=== PATIENT | female | born 1950 | race Caucasian/White ===

== ENCOUNTER 2016-06-04 10:36 | Emergency (ER) | payer OTHER ==
[2016-06-04 10:55] VITALS: BP 146/76; PULSE 84; RESP 18; TEMP 97.9; O2SAT 99
--- NOTE | 2016-06-04 11:27 | UCPHY ---
H & P Patient Type: New Chief Complaint Nursing Narrative: fell today, landed on l shoulder, c/o l shoulder pain and inability to move l arm Time Seen by Provider: 06/04/16 11:15 HPI/ROS: CHIEF COMPLAINT: Left shoulder pain HISTORY OF PRESENT ILLNESS: The patient is a 65-year-old female who comes to the Urgent Care complaining of left-sided shoulder pain. She states that this morning she tripped over the carpet and fell onto her left shoulder. She had immediate pain. She has mild neck pain and elbow pain as well but is not concerned about it. She thinks that the main issue was her shoulder. Normal pulses distally. Normal sensation. REVIEW OF SYSTEMS: Constitutional: denies: chills, fever, recent illness, recent injury EENTM: denies: blurred vision, double vision, nose congestion Respiratory: denies: cough, shortness of breath Cardiac: denies: chest pain, irregular heart rate, lightheadedness, palpitations Gastrointestinal/Abdominal: denies: abdominal pain, diarrhea, nausea, vomiting, blood streaked stools Genitourinary: denies: dysuria, frequency, hematuria, pain Musculoskeletal: See HPI Skin: denies: lesions, rash, jaundice, bruising Neurological: denies: headache, numbness, paresthesia, tingling, dizziness, weakness Hematologic/Lymphatic: denies: blood clots, easy bleeding, easy bruising Immunologic/allergic: denies: HIV/AIDS, transplant EXAM: GENERAL: Well-appearing, well-nourished and in no acute distress. HEAD: Atraumatic, normocephalic. EYES: Pupils equal round and reactive to light, extraocular movements intact, sclera anicteric, conjunctiva are normal. ENT: TMs normal, nares patent, oropharynx clear without exudates. Moist mucous membranes. NECK: Normal range of motion, supple without lymphadenopathy or JVD. LUNGS: Breath sounds clear to auscultation bilaterally and equal. No wheezes rales or rhonchi. HEART: Regular rate and rhythm without murmurs, rubs or gallops. ABDOMEN: Soft, nontender, normoactive bowel sounds. No guarding, no rebound. No masses appreciated. BACK: No CVA tenderness, no spinal tenderness, step-offs or deformities EXTREMITIES: Left shoulder pain, tenderness to the proximal humerus, tenderness to the AC joint or neck. No tenderness to the elbow. Normal pronation and supination and flexion of the elbow. NEUROLOGICAL: Cranial nerves II through XII grossly intact. Normal speech, normal gait. 5/5 strength, normal movement in all extremities, normal sensation PSYCH: Normal mood, normal affect. SKIN: Warm, dry, normal turgor, no visible rashes or lesions. Source: Patient Exam Limitations: No limitations - Medical/Surgical History Hx Asthma: No Hx Chronic Respiratory Disease: No Hx Diabetes: No Hx Cardiac Disease: No Hx Renal Disease: No Hx Cirrhosis: No Other PMH: depression - Family History Significant Family History: Hypertension - Social History Smoking Status: Former smoker Alcohol Use: Sober Drug Use: None Constitutional: Initial Vital Signs Temperature (C) 36.6 C 06/04/16 10:52 Heart Rate 84 06/04/16 10:52 Respiratory Rate 18 06/04/16 10:52 Blood Pressure 146/76 H 06/04/16 10:52 O2 Sat (%) 99 06/04/16 10:52 O2 Delivery Mode Room Air Allergies/Adverse Reactions: Sulfa (Sulfonamide Antibiotics) Allergy (Verified 06/04/16 10:51) Home Medications: Medication Instructions Recorded Ibuprofen 800 mg PO TID PRN #30 tablet 06/04/16 Prozac 20 MG (*) 06/04/16 oxyCODONE/APAP 5/325 [Percocet 1 - 2 tab PO Q4-6PRN PRN #14 tab 06/04/16 5/325 (RX)] Medical Decision Making Procedures: Procedure: Splint placement. A arm sling was applied. After application of the splint I returned and re- examined the patient. The splint was adequately immobilizing the joint and distal to the splint the patient's circulation and sensation was intact. ED Course/Re-evaluation: Patient has a humeral neck fracture. I will place her in a sling and have her follow up with Orthopedics. She declines other imaging workup at this time. She does request Percocet but only once to have a small prescription she is concerned about becoming addicted. She takes ibuprofen chronically for arthritis. She also is requesting referral to primary care physician for treatment of her depression and refill of her Prozac. She recently moved to [facility]. Differential Diagnosis: Partial list of the Differential diagnosis considered include but were not limited to; humeral neck fracture, AC separation, contusion, neck injury, rotator cuff injury, elbow injury and although unlikely based on the history and physical exam, I also considered non accidental trauma, intracranial hemorrhage. I discussed these differential diagnoses and the plan with the patient as well as the usual and expected course. The patient understands that the diagnosis is provisional and that in medicine we are not always correct and that further workup is often warranted. Usual and customary warnings were given. All of the patient's questions were answered. The patient was instructed to return to the emergency department should the symptoms at all worsen or return, otherwise to followup with the physician as we discussed. - Data Points Medications Given: Discontinued Medications Oxycodone/Acetaminophen (Percocet 5/325) 2 tab PO EDNOW ONE Stop: 06/04/16 11:31 Last Admin: 06/04/16 11:45 Dose: 2 tab Departure - Departure Disposition: Home, Routine, Self-Care Clinical Impression: Fracture, humerus closed Qualifiers: Encounter type: initial encounter Humerus Location: proximal Fracture morphology: other fracture Fracture alignment: nondisplaced Laterality: left Qualified Code(s): S42.295A - Other nondisplaced fracture of upper end of left humerus, initial encounter for closed fracture Acromioclavicular joint separation Qualifiers: Encounter type: initial encounter Laterality: left Qualified Code(s): S43.102A - Unspecified dislocation of left acromioclavicular joint, initial encounter Condition: Fair Instructions: Proximal Humerus Fracture (ED) Referrals: Chris Oliver MD [Medical Doctor] - As per Instructions Chetna Rutledge MD [Medical Doctor] - As per Instructions Prescriptions: Ibuprofen 800 mg PO TID PRN #30 tablet PRN Reason: Pain, Moderate oxyCODONE/APAP 5/325 [Percocet 5/325 (RX)] 1 - 2 tab PO Q4-6PRN PRN #14 tab PRN Reason: Pain - PQRS PQRS Measurement: 134: Depression screening and followup, PRIME MD-PHQ2 (12 years and older) Over the last 2 weeks, how often have you been bothered by any of the following problems? 1. Feeling down, depressed, or hopeless? 2. Little interest or pleasure in doing things? Patient answered no to both 1 and 2 130: Documentation of medications. Reviewed all patient medications, doses, route and frequency. 226: Do you smoke? No. Quit 47: 65 and older: Advanced care planning. Patient designates surrogate decision maker as spouse . Patient has advanced directive. 51: 18 years old and older with diagnosis of COPD, spirometry performance. Spirometry not performed; equipment not available. 52: 18 years old and older with COPD and symptoms of COPD or FEV1<60% predicted prescribed a B Agonist. Not applicable
[2016-06-04] MEDS ORDERED: OXYCODONE/APAP 5/325 TAB PO ONE (11:30)
== END 2016-06-04 11:45 | disposition home or self-care (01) ==
LOC: CED 10:36
DX: S42.295A Other nondisplaced fracture of upper end of left humerus, initial encounter for closed fracture (principal); W18.09XA Striking against other object with subsequent fall, initial encounter; Y92.89 Other specified places as the place of occurrence of the external cause
CPT/HCPCS: 73030; A4565; G0463; 99204-PO

== ENCOUNTER 2016-08-09 16:59 | Emergency (ER) | payer OTHER ==
--- NOTE | 2016-08-09 17:10 | CPEKG ---
Heart Rate: 109 RR Interval: 550 P-R Interval: 152 QRSD Interval: 112 QT Interval: 352 QTC Interval: 475 P [place]: 78 QRS [place]: -106 T Wave [place]: 62 EKG Severity - ABNORMAL ECG - EKG Impression: SINUS TACHYCARDIA EKG Impression: INCOMPLETE RIGHT BUNDLE BRANCH BLOCK Electronically Signed By: Kevin Santo 09-Aug-2016 17:19:31
[2016-08-09] MEDS ORDERED: ASPIRIN 81 MG CHEWABLE TAB PO ONE (17:11)
[2016-08-09] MEDS ORDERED: NS 1,000 ML IV ONE (17:11)
[2016-08-09 17:17] LABS: % IMMATURE GRANULYOCYTES 0.3 % (0.0-1.1); ABSOLUTE IMMATURE GRANULOCYTES 0.03 10^3/uL (0.00-0.10); ADD DIFF? NO; ADD MORPH? NO; ADD SCAN? NO; ATYPICAL LYMPHOCYTE FLAG 20 (0-99); FRAGMENT RBC FLAG 0 (0-99); HEMATOCRIT 38.9 % (38.0-47.0); HEMOGLOBIN 12.9 g/dL (12.6-16.3); LEFT SHIFT FLG 0 (0-99); LIPEMIA HEMOLYSIS FLAG 80 (0-99); MEAN CELL HEMOGLOBIN 31.1 pg (27.9-34.1); MEAN CELL HEMOGLOBIN CONCENTR. 33.2 g/dL (32.4-36.7); MEAN CELL VOLUME 93.7 fL (81.5-99.8); PLATELET CLUMPS FLAG 0 (0-99); PLATELET COUNT 319 10^3/uL (150-400); RED BLOOD CELL COUNT 4.15 10^6/uL (4.18-5.33); RED CELL DISTRIBUTION WIDTH 13.8 % (11.5-15.2)
[2016-08-09] MEDS ORDERED: IOPAMIDOL (ISOVUE 370) 100 ML BTL IV ONE (17:17)
[2016-08-09] MEDS ORDERED: ASPIRIN 81 MG CHEWABLE TAB ONE (17:17)
--- NOTE | 2016-08-09 17:17 | EDPHY ---
H & P Time Seen by Provider: 08/09/16 17:07 HPI/ROS: CHIEF COMPLAINT: Chest pain radiating to back HISTORY OF PRESENT ILLNESS: The patient is a 65-year-old female with no significant past medical history who comes to the emergency department complaining chest pain radiating to her back. She states that it began yesterday when she woke from sleep. It worsened today when she woke from sleep. She denies heartburn symptoms. She states that it is worsened by deep inspiration. She has not had a fever or recent illness. She states she is not short of breath but it hurts to take deep breath. The pain is at her lower costal margin. No abdominal pain or tenderness. No nausea vomiting. No dizziness or lightheadedness. No diaphoresis. The pain radiates to her back between her shoulder blades. She denies any recent travel or procedures. She does not smoke. No leg pain or swelling. She does not use hormones. REVIEW OF SYSTEMS: Constitutional: denies: chills, fever, recent illness, recent injury EENTM: denies: blurred vision, double vision, nose congestion Respiratory: See HPI Cardiac: See HPI Gastrointestinal/Abdominal: denies: abdominal pain, diarrhea, nausea, vomiting, blood streaked stools Genitourinary: denies: dysuria, frequency, hematuria, pain Musculoskeletal: denies: joint pain, muscle pain Skin: denies: lesions, rash, jaundice, bruising Neurological: denies: headache, numbness, paresthesia, tingling, dizziness, weakness Hematologic/Lymphatic: denies: blood clots, easy bleeding, easy bruising Immunologic/allergic: denies: HIV/AIDS, transplant EXAM: GENERAL: Well-appearing, obese and in no acute distress. HEAD: Atraumatic, normocephalic. EYES: Pupils equal round and reactive to light, extraocular movements intact, sclera anicteric, conjunctiva are normal. ENT: TMs normal, nares patent, oropharynx clear without exudates. Moist mucous membranes. NECK: Normal range of motion, supple without lymphadenopathy or JVD. LUNGS: Breath sounds clear to auscultation bilaterally and equal. No wheezes rales or rhonchi. HEART: Regular rate and rhythm without murmurs, rubs or gallops. ABDOMEN: Soft, nontender, normoactive bowel sounds. No guarding, no rebound. No masses appreciated. BACK: No CVA tenderness, no spinal tenderness, step-offs or deformities EXTREMITIES: Normal range of motion, no pitting or edema. No clubbing or cyanosis. NEUROLOGICAL: Cranial nerves II through XII grossly intact. Normal speech, normal gait. 5/5 strength, normal movement in all extremities, normal sensation PSYCH: Normal mood, normal affect. SKIN: Warm, dry, normal turgor, no visible rashes or lesions. Source: Patient Exam Limitations: No limitations - Medical/Surgical History Hx Asthma: No Hx Chronic Respiratory Disease: No Hx Diabetes: No Hx Cardiac Disease: No Hx Renal Disease: No Hx Cirrhosis: No Other PMH: depression - Family History Significant Family History: No pertinent family hx - Social History Smoking Status: Former smoker Alcohol Use: Sober Drug Use: None Constitutional: Initial Vital Signs Temperature (C) 36.5 C 08/09/16 17:14 Heart Rate 88 08/09/16 17:14 Respiratory Rate 20 08/09/16 17:14 Blood Pressure 148/91 H 08/09/16 17:14 O2 Sat (%) 98 08/09/16 17:14 O2 Delivery Mode Room Air O2 (L/minute) 2 Allergies/Adverse Reactions: Sulfa (Sulfonamide Antibiotics) Allergy (Verified 06/04/16 10:51) Home Medications: Medication Instructions Recorded Ibuprofen 800 mg PO TID PRN #30 tablet 06/04/16 Prozac 20 MG (*) 06/04/16 oxyCODONE/APAP 5/325 [Percocet 1 - 2 tab PO Q4-6PRN PRN #14 tab 06/04/16 5/325 (RX)] Medical Decision Making - Diagnostics EKG Interpretation: An EKG obtained and was read and documented in trace view. Please see trace view for full reading and report. Sinus tachycardia with right bundle branch block, no previous for comparison, no acute ischemic changes Imaging Results: Imaging Impressions Chest/Thorax CTA 08/09/16 17:12 Impression: 1. No evidence for aortic aneurysm or dissection. 2. No obvious pulmonary emboli 3. Moderate hiatal hernia. Final concordant results called and discussed with KRISSY CASTRO, at 2016 17:52 General information for patients regarding this examination can be found at [email or web address]. If you have questions or comments about this report, please contact me at (hospital) or [phone] (cell). Abdomen CTA 08/09/16 17:18 Impression: No aneurysm, thrombosis or dissection. Results called and discussed with KRISSY CASTRO, at 08/09/2016 18:04 Pelvis CTA 08/09/16 17:18 Impression: No aneurysm, thrombosis or dissection. Results called and discussed with KRISSY CASTRO, at 08/09/2016 18:04 ED Course/Re-evaluation: We discussed the patient's CT and lab results which are reassuring. We discussed the hiatal hernia and treatment. She states that she does have a trouble with reflux and takes omeprazole typically at home. Encouraged to keep doing this and will have her follow up with surgery for elective hernia repair. She understands and agrees with this plan. She declines further workup or testing at this time. She is currently symptom free. Differential Diagnosis: Partial list of the Differential diagnosis considered include but were not limited to; acute coronary disease, dissection, PE hernia and although unlikely based on the history and physical exam, I also considered anxiety, arrhythmia. I discussed these differential diagnoses and the plan with the patient as well as the usual and expected course. The patient understands that the diagnosis is provisional and that in medicine we are not always correct and that further workup is often warranted. Usual and customary warnings were given. All of the patient's questions were answered. The patient was instructed to return to the emergency department should the symptoms at all worsen or return, otherwise to followup with the physician as we discussed. - Data Points Laboratory Results: Laboratory Results 08/09/16 17:10 08/09/16 17:10 08/09/16 08/09/16 08/09/16 17:10 17:10 17:10 WBC 8.68 10^3/uL 10^3/uL (3.80-9.50) RBC 4.15 10^6/uL L 10^6/uL (4.18-5.33) Hgb 12.9 g/dL g/dL (12.6-16.3) POC Hgb Hct 38.9 % % (38.0-47.0) POC Hct MCV 93.7 fL fL (81.5-99.8) MCH 31.1 pg pg (27.9-34.1) MCHC 33.2 g/dL g/dL (32.4-36.7) RDW 13.8 % % (11.5-15.2) Plt Count 319 10^3/uL 10^3/uL (150-400) MPV 10.0 fL fL (8.7-11.7) Neut % (Auto) 62.1 % % (39.3-74.2) Lymph % (Auto) 25.8 % % (15.0-45.0) [place] % (Auto) 8.5 % % (4.5-13.0) Eos % (Auto) 2.6 % % (0.6-7.6) Baso % (Auto) 0.7 % % (0.3-1.7) Nucleat RBC Rel Count 0.0 % % (0.0-0.2) Absolute Neuts (auto) 5.38 10^3/uL 10^3/uL (1.70-6.50) Absolute Lymphs (auto) 2.24 10^3/uL 10^3/uL (1.00-3.00) Absolute Monos (auto) 0.74 10^3/uL 10^3/uL (0.30-0.80) Absolute Eos (auto) 0.23 10^3/uL 10^3/uL (0.03-0.40) Absolute Basos (auto) 0.06 10^3/uL 10^3/uL (0.02-0.10) Absolute Nucleated RBC 0.00 10^3/uL 10^3/uL (0-0.01) Immature Gran % 0.3 % % (0.0-1.1) Immature Gran # 0.03 10^3/uL 10^3/uL (0.00-0.10) PT 12.7 SEC SEC (12.0-15.0) INR 0.98 (0.83-1.16) APTT 35.0 SEC SEC (23.0-38.0) POC Sodium Sodium 140 mEq/L mEq/L (134-144) POC Potassium Potassium 5.0 mEq/L mEq/L (3.5-5.2) POC Chloride Chloride 99 mEq/L mEq/L (97-110) Carbon Dioxide 23 mEq/l mEq/l (22-31) Anion Gap 18 mEq/L H mEq/L (8-16) POC BUN BUN 19 mg/dL mg/dL (7-23) Creatinine 0.8 mg/dL mg/dL (0.6-1.0) POC Creatinine Estimated GFR > 60 Glucose 107 mg/dL H mg/dL (70-100) POC Glucose Calcium 9.1 mg/dL mg/dL (8.5-10.4) Total Bilirubin 0.5 mg/dL mg/dL (0.1-1.4) Conjugated Bilirubin 0.3 mg/dL mg/dL (0.0-0.5) Unconjugated Bilirubin 0.2 mg/dL mg/dL (0.0-1.1) AST 15 IU/L IU/L (14-46) ALT 21 IU/L IU/L (9-52) Alkaline Phosphatase 62 IU/L IU/L (38-126) Troponin I < 0.012 ng/mL ng/mL (0-0.034) Total Protein 7.9 g/dL g/dL (6.3-8.2) Albumin 3.9 g/dL g/dL (3.5-5.0) Lipase 47.0 IU/L IU/L (23-300) 08/09/16 17:08 WBC RBC Hgb POC Hgb 13.9 gm/dL gm/dL (12.3-15.9) Hct POC Hct 41 % % (35.5-47.5) MCV MCH MCHC RDW Plt Count MPV Neut % (Auto) Lymph % (Auto) [place] % (Auto) Eos % (Auto) Baso % (Auto) Nucleat RBC Rel Count Absolute Neuts (auto) Absolute Lymphs (auto) Absolute Monos (auto) Absolute Eos (auto) Absolute Basos (auto) Absolute Nucleated RBC Immature Gran % Immature Gran # PT INR APTT POC Sodium 139 mEq/L mEq/L (134-144) Sodium POC Potassium 4.7 mEq/L mEq/L (3.3-5.0) Potassium POC Chloride 102 mEq/L mEq/L (96-108) Chloride Carbon Dioxide Anion Gap POC BUN 21 mg/dL mg/dL (7-23) BUN Creatinine POC Creatinine 0.8 mg/dL mg/dL (0.6-1.2) Estimated GFR Glucose POC Glucose 109 mg/dL H mg/dL (70-100) Calcium Total Bilirubin Conjugated Bilirubin Unconjugated Bilirubin AST ALT Alkaline Phosphatase Troponin I Total Protein Albumin Lipase Medications Given: Discontinued Medications Aspirin (Aspirin) 324 mg PO EDNOW ONE Stop: 08/09/16 17:12 Last Admin: 08/09/16 17:20 Dose: 324 mg Famotidine (Pepcid) 40 mg PO EDNOW ONE Stop: 08/09/16 18:06 Last Admin: 08/09/16 18:17 Dose: 40 mg Sodium Chloride (Ns) 1,000 mls @ 0 mls/hr IV ONCE ONE PRN Reason: Wide Open Stop: 08/09/16 17:12 Last Admin: 08/09/16 17:20 Dose: 1,000 mls Point of Care Test Results: 08/09/16 17:08 POC Sodium 139 POC Potassium 4.7 POC Chloride 102 POC BUN 21 POC Creatinine 0.8 POC Glucose 109 H Departure - Departure Disposition: Home, Routine, Self-Care Clinical Impression: Hiatal hernia Condition: Fair Instructions: Hiatal Hernia (ED) Referrals: Yuliana Grover MD [Primary Care Provider] - As per Instructions Darrin Coyne MD [Medical Doctor] - As per Instructions
[2016-08-09 17:20] VITALS: TEMP 97.7
[2016-08-09 17:27] LABS: INR 0.98 (0.83-1.16); PROTIME(PATIENT) 12.7 SEC (12.0-15.0)
[2016-08-09 17:32] LABS: ALANINE AMINOTRANSFERASE 21 IU/L (9-52); ALBUMIN 3.9 g/dL (3.5-5.0); ALKALINE PHOSPHATASE 62 IU/L (38-126); ANION GAP 18 mEq/L (8-16); ASPARTATE AMINOTRANSFERASE 15 IU/L (14-46); BILIRUBIN,TOTAL 0.5 mg/dL (0.1-1.4); BILIRUBIN-CONJUGATED 0.3 mg/dL (0.0-0.5); BILIRUBIN-UNCONJUGATED 0.2 mg/dL (0.0-1.1); CALCIUM 9.1 mg/dL (8.5-10.4); CARBON DIOXIDE 23 mEq/l (22-31); CHLORIDE 99 mEq/L (97-110); CREATININE 0.8 mg/dL (0.6-1.0); GLOMERULAR FILTRATION RATE > 60; GLUCOSE 107 mg/dL (70-100); SODIUM 140 mEq/L (134-144); TOTAL PROTEIN 7.9 g/dL (6.3-8.2)
[2016-08-09 17:40] LABS: TROPONIN I < 0.012 ng/mL (0-0.034)
[2016-08-09] MEDS ORDERED: FAMOTIDINE 20 MG TAB PO ONE (18:05)
[2016-08-09 18:17] VITALS: RESP 16
[2016-08-09 18:33] VITALS: BP 112/74; PULSE 91; O2SAT 99
== END 2016-08-09 18:34 | disposition home or self-care (01) ==
LOC: CED 16:59
DX: K44.9 Diaphragmatic hernia without obstruction or gangrene (principal); Z87.891 Personal history of nicotine dependence
CPT/HCPCS: 71275; 72191; 74175; 93005; 96360; 99285; Q9967; 80048-PO; 80076-PO; 82947-QW; 83690-PO; 84484-PO; 85025-PO; 85610-PO; 85730-PO